=== PATIENT | female | born 1995 | race Caucasian/White ===

== ENCOUNTER → 2023-01-02 | Outpatient (CLI) | payer OTHER, SELFPAY | END | disposition home or self-care (01) | PROVIDERS: Referring Provider Registered Nurse; Visit Provider Registered Nurse | DX: Z34.90 Encounter for supervision of normal pregnancy, unspecified, unspecified trimester (principal); Z3A.00 Weeks of gestation of pregnancy not specified | CPT/HCPCS: 87086; 87088 ==

== ENCOUNTER → 2023-01-11 | Outpatient (CLI) | payer OTHER, SELFPAY ==
[2023-01-18 17:53] LABS: HPV Reflexed? NOT INDICATED
== END | disposition home or self-care (01) ==
LOC: LABSPEC 17:09
PROVIDERS: Referring Provider Registered Nurse; Visit Provider Registered Nurse
DX: Z12.4 Encounter for screening for malignant neoplasm of cervix (principal)
CPT/HCPCS: 88175; G0145

== ENCOUNTER → 2023-01-29 | Outpatient (CLI) | payer OTHER, SELFPAY ==
[2023-01-29 16:26] LABS: NATERA MAILED SPECIMEN
[2023-01-29 16:28] LABS: Absolute Lymphocyte Count 2.82 X10^3/uL (0.83-4.51); Absolute Neutrophil Count 6.1 X10^3/uL (2.0-7.7); Basophil# 0.04 X10^3/uL; Basophil% 0.4 % (0-1); Eosinophil# 0.13 X10^3/uL; Eosinophils% 1.3 % (0-5); Hematocrit 36.8 % (37-47); Hemoglobin 12.3 g/dL (12.0-15.0); Lymphocyte # 2.82 X10^3/ul (0.83-4.51); Lymphocyte % 28.5 % (19-41); Mean Corp Hgb Conc 33.4 g/dL (32-36); Mean Corpuscular Hgb 29.9 pg (27.0-32.0); Mean Corpuscular Volume 89.3 fL (81-99); Mean Platelet Vol. 10.3 fl (6.2-12.0); Monocyte# 0.83 X10^3/uL; Monocyte% 8.4 % (0-10); NRBC Flagged by Analyzer 0 % (0-5); Neutrophil # 6.07 X10^3/uL (2.7-7.7); Neutrophil % 61.2 % (47-70); Platelet Count 301 K/mm3 (150-450); RBC Distribution Width CV 12.4 % (11.6-14.6); RBC Distribution Width SD 40.5 fl (35.1-43.9); Red Blood Count 4.12 M/mm3 (4.2-5.4); White Blood Count 9.9 K/mm3 (4.4-11.0)
[2023-01-29 16:59] LABS: Anion Gap 4 (5-15); BUN 9 mg/dL (7-18); BUN/Creat Ratio 13.4 RATIO (10-20); Chloride 106 mmol/L (98-107); Creatinine, Serum 0.67 mg/dL (0.55-1.02); EST Glomerular Filtration Rate 113 mL/min (>60); Est Glom Filt Rate - Afr Amer 136 mL/min (>60); Glucose 86 mg/dL (74-106); Potassium 3.5 mmol/L (3.5-5.1); Sodium Level 137 mmol/L (136-145)
[2023-01-29 17:14] LABS: Hemoglobin A1c < 3.8 % (3.8-5.6)
[2023-01-29 17:42] LABS: HIV - WCH Non-Reactive (Nonreactive); Hepatitis B Surface Antigen Non-Reactive (Nonreactive); Hepatitis C Antibody Non-Reactive (Nonreactive); Rubella IgG Reactive (Nonreactive); Syphilis Antibodies Non-reactive
== END | disposition home or self-care (01) ==
PROVIDERS: Referring Provider Registered Nurse; Visit Provider Registered Nurse
DX: O99.210 Obesity complicating pregnancy, unspecified trimester (principal); N28.9 Disorder of kidney and ureter, unspecified; E66.9 Obesity, unspecified; O99.891 Other specified diseases and conditions complicating pregnancy; Z3A.00 Weeks of gestation of pregnancy not specified
CPT/HCPCS: 36415; 80048; 83036; 85025; 86703; 86762; 86780; 86803; 86850; 86900; 86901; 87340

== ENCOUNTER 2023-03-16 20:16 | Emergency (ER) | payer OTHER, SELFPAY ==
[2023-03-16 20:18] VITALS: BP 134/94; PULSE 94; RESP 18; TEMP 36.3; O2SAT 100; BMI 30.2
--- NOTE | 2023-03-16 20:40 | EDS_ITS ---
<Statement entered by Yari Cruz MD - 03/17/23 00:56> I have personally performed a face to face assessment of the patient and have reviewed the RAMIN Note. Patient presents secondary to vaginal bleeding. She is currently 17 weeks with her first . Apparently after going to the bathroom and wiping today she noted blood. I did receive a phone call from Dr. Joan More that the patient will be coming over. She had recommended getting a formal ultrasound only if ultrasound is already in-house. If not we could obtain heart tones and if normal patient can be discharged home on bedrest until she can have an ultrasound to the office. Patient denies significant cramping or further bleeding. Her blood type is a positive. Patient sitting upright in bed no acute distress. She is anxious but in no acute distress. Head and neck examination unremarkable. Heart is regular rate and rhythm. Lung sounds are clear. Abdomen is soft and nontender. I performed a bedside ultrasound which reveals good movement and cardiac motion. Nursing staff was able to obtain bedside heart tones at 134. Patient was advised to follow pelvic rest and follow-up with [facility] on Saturday. Return instructions given. HPI HPI - Female History of Present Illness Chief Complaint: Vag Bld, Preg Narrative Narrative: Patient presenting today due to vaginal bleeding that started this evening. She reports that she went to use the toilet and noticed a small amount of blood when she wiped. She immediately called her OB and came into the ED. She sees Dr. More. She is G1, P0 and 17 weeks along. She has had care. She denies any recent sexual intercourse, fevers, chills, pelvic pain, abdominal pain, urinary symptoms, nausea, or vomiting. [facility] Medical History Alopecia Kidney stone Recurrent UTI Home Medications multivit-min no.71-iron fum 28 mg-folate no.1 1 mg-dha 300 mg capsule (PNV- [place]) cap PO 12/28/22 [History Last Taken Unknown] ondansetron 4 mg disintegrating tablet 4 mg PO Q8H PRN nausea and vomiting #30 tabs 01/11/23 [Rx Last Taken Unknown] famotidine 20 mg tablet (Pepcid) 20 mg PO BID #60 tabs 03/06/23 [Rx Last Taken Unknown] Allergy/AdvReac Type Severity Reaction Status Date / Time No Known Allergies Allergy Verified 03/16/23 20:18 Surgical History H/O lithotripsy Social History adopted: No household members: spouse current occupational status: employed current occupation: TEACHER current occupational exposures/hazards: No pets and animals: No history of recent travel: Yes ([place]) out of state: Yes out of country: No sexually active: Yes Smoking Status: Never smoker alcohol intake: current alcohol intake frequency: holidays/special occasions only details: NOT WHILE substance use type: does not use well-balanced diet: daily or most days caffeine: No eating out: 1-3 times/week during the past year weight has: remained stable what type of physical activity do you participate in: other details: CROSSFIT frequency: 1-2 times per week duration: 45-60 minutes/day bonilla/alevism: Advent seatbelt use: always do you feel safe at home: Yes additional social history: [employer] ROS ROS ED Constitutional Constitutional ED: Denies chills or fever(s) Cardiovascular Cardiovascular: Denies chest pain Respiratory/Chest Respiratory/Chest: Denies cough or dyspnea Gastrointestinal Gastrointestinal: Denies abdominal pain, nausea or vomiting Genitourinary Genitourinary ED: Denies dysuria, hematuria or urinary frequency Musculoskeletal Musculoskeletal: Denies arthralgias or myalgias Integumentary Denies rash Neurologic Neurologic: Denies weakness EXAM Physical Exam Const Vital Signs: 03/16/23 20:18 Temperature 97.3 F L Temperature Source Temporal Pulse Rate 94 Respiratory Rate 18 Blood Pressure 134/94 H Blood Pressure Mean 107 Pulse Ox 100 Oxygen Delivery Method Room Air Positive well nourished, well developed and no apparent distress General Appearance ED: well developed HEENT Reports normocephalic and head/scalp atraumatic Mouth ED: Yes moist mucous membranes normal Eyes PERRL and EOMs intact bilaterally Neck full ROM and supple Chest Wall inspection of chest normal Resp normal respiratory effort and clear to auscultation bilaterally Cardio regular rate and regular rhythm GI soft to palpation, non-tender, non-distended and no masses Back/Spine normal ROM and normal to inspection Extremity normal to inspection and full ROM Neuro oriented x3, CN's II-XII intact bilaterally, moves all extremities, no focal motor deficits and no sensory deficits noted Sensorium / Orientation: awake and alert Psych mental status grossly normal and thought process normal Skin no rashes or lesions noted and no wounds MDM MDM MDM Narrative Medical decision making narrative: Patient presenting due to vaginal bleeding that started this evening. She had noticed small amount when she wiped. She has not had any abdominal or pelvic cramping. She is tearful and appears anxious. The attending did speak with Dr. More who reported that if ultrasound was here to order a transvaginal ultrasound, however, since we do not have them at this hour she suggests getting heart tones. If the heart tones were normal she encouraged pelvic rest until a formal ultrasound can be obtained. Her blood type is A +. heart tones are 134 bpm. The attending did perform a ultrasound and sees normal movement. We did speak with her OB, she is to follow-up with her on Saturday and will be discharged home in stable condition. She has been given return instructions and is comfortable with plan. Discharge Plan Triage Chief Complaint: Vag Bld, Preg ED Midlevel Provider: Alejandra Dejesus ED Provider: Yari Cruz Dx/Rx/DC Orders Clinical Impression: Abnormal vaginal bleeding, Instructions: Vaginal Bleeding During Prescriptions: No Action PNV-[place] 28-1-300 mg capsule PO ondansetron 4 mg tablet,disintegrating 4 mg PO Q8H PRN (Reason: nausea and vomiting) Qty: 30 3RF famotidine [Pepcid] 20 mg tablet 20 mg PO BID Qty: 60 10RF Primary Care Provider: Care Physician,No Primary Referrals: Care Physician,No Primary [Primary Care Provider] - Activity Restrictions/Additional Instructions: Follow up with OB and return for any worsening of your symptoms. Disposition Disposition: Home, Self Care
--- OUTSIDE RECORDS SUMMARY | 2023-03-16 20:41 | XMS RPT_ITS | CCD ---
Author Name Unknown Address [address] [facility] [address] [place] [address] Organization [facility] Care Team Providers Care Color Technician Name Role Phone Viral Lincoln Unavailable Unavailable None, No PCP Unavailable Unavailable None, No PCP Unavailable Unavailable Unavailable Unavailable Yogesh Smith Unavailable Luis, Mr. Yogesh Reeceel Primary Care Unavail able Newbill, Yogesh Reeceel Attending Unavail able Newbill, Mr. Yogesh Keith Referring Unavail able Salazar, Dr. Viral Nguyen Attending Unavai jennifer Lincoln, Dr. Viral Nguyen Referring Unavai lable Newbill, Mr. Yogesh Keith Primary Care Unavail able Newbill, Mr. Yogesh Keith Primary Care Unavail able VIRAL LINCOLN Attending UnavailVIRAL Escobar Referring Unavailabl e VIRAL LINCOLN Attending Unavailabl e VIRAL LINCOLN Referring Unavailabl e Newbill, Mr. Yogesh Keith Primary Care Unavail able VIRAL LINCOLN Attending Unavailabl e Newbill, Mr. Yogesh Keith Primary Care Unavail able Newbill, Trey Yogesh Sagar Attending Unavail able Newbill, Mr. Yogesh Keith Referring Unavail able Medications Completed/Discontinued Medications Medication Drug Class(es) Dates Sig (Normalized) Sig (Original) drospirenone / Ethinyl Estradiol (3 sources) Progestin, Estrogen Start: 12-15-2021 take 1 tablet by mouth once daily Drospirenone-Ethi nyl Estradiol 3-0.03 MG Oral Tablet TAKE 1 TABLET DAILY. 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, without mention of intractable migraine without mention of status migrainosus] Chronic Immunizations and screening for infectious disease (20 sources) Patient encounter status; Translations: [Screening examination for venereal disease] Episodic Inflammatory diseases of female pelvic organs (16 sources) Bacterial vaginosis; Translations: [Vaginitis and vulvovaginitis, unspecified] Episodic Other endocrine disorders (1 source) Menarche; Translations: [History of Menarche] Chronic Other female genital disorders (14 sources) Postcoital bleeding; Translations: [Postcoital bleeding] Chronic Other female genital disorders (2 sources) Postcoital and contact bleeding; Translations: [Postcoital and contact bleeding] Onset: 12-11-2021 Chronic Other screening for suspected conditions (not mental disorders or infectious disease) (18 sources) Cancer cervix screening status; Translations: [Screening for malignant neoplasms of cervix] Onset: 12-06-2021 Episodic Transient cerebral ischemia (12 sources) Amaurosis fugax of left eye; 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] Onset: 03-20-2021 Chronic Viral infection (6 sources) Herpes simplex of female genitalia; Translations: [Genital herpes, unspecified] Chronic Past or Other Problems Problem Classification Problem Date Documented Da te Episodic/Chronic Unclassified (1 source) Patient encounter status; Translations: [Contraceptive management] Unclassified (1 source) Cancer cervix screening status; Translations: [Screening for cervical cancer] Unclassified (16 sources) Finding of menstrual bleeding; Translations: [Menstruation] Results Test Name Value Interpretation Reference Range Facil ity Vital Signs Date Time Vital Sign Value Performing Clinician Felixi venessa 12-15-2021 15:49-0400 Body height 152.4 cm [place] Work Phone: [employer] Work Phone: 12-15-2021 15:49-0400 Body mass index (BMI) [Ratio] 30.44 kg/m2 [place] Work Phone: [employer] Work Phone: 12-15-2021 15:49-0400 Body surface area Derived from formula 1.68 m2 Yogesh Imelda Newbill Work Phone: [place] [address] [address] Work Phone: 12-15-2021 15:49-0400 Body weight 70.7 kg Yogesh M Newbill Work Phone: [place] [address] [address] Work Phone: 12-15-2021 15:49-0400 Diastolic blood pressure 66 mm[Hg] Yogesh M Newbill Work Phone: [place] [address] [address] Work Phone: 12-15-2021 15:49-0400 Systolic blood pressure 124 mm[Hg] Yogesh M Newbill Work Phone: [place] [address] [address] Work Phone: 12-06-2021 15:37-0400 Body height 152.4 cm Yogesh Imelda Newbill Work Phone: [place] [address] [address] Work Phone: 12-06-2021 15:37-0400 Body mass index (BMI) [Ratio] 30.31 kg/m2 Yogesh Imelda Newbill Work Phone: [place] [address] [address] Work Phone: 12-06-2021 15:37-0400 Body surface area Derived from formula 1.68 m2 Yogesh Imelda Newbill Work Phone: [place] [address] [address] Work Phone: 12-06-2021 15:37-0400 Body weight 70.4 kg Yogesh M Newbill Work Phone: [place] [address] [address] Work Phone: 12-06-2021 15:37-0400 Diastolic blood pressure 64 mm[Hg] Yogesh M Newbill Work Phone: [place] [address] [address] Work Phone: 12-06-2021 15:37-0400 Systolic blood pressure 122 mm[Hg] Yogesh Smith [facility] [address] Work Phone: 02-27-2021 15:18-0500 Body height 152.4 cm No PCP None [facility] Work Phone: 02-27-2021 15:18-0500 Body mass index (BMI) [Ratio] 29.1 kg/m2 No PCP None [facility] Work Phone: 02-27-2021 15:18-0500 Body surface area Derived from formula 1.65 m2 No PCP None [facility] Work Phone: 02-27-2021 15:18-0500 Body temperature 97.6 [degF] No PCP None [facility] Work Phone: 02-27-2021 15:18-0500 Body weight 67.59 kg No PCP None [facility] Work Phone: 02-27-2021 15:18-0500 Diastolic blood pressure 80 mm[Hg] No PCP None [facility] Work Phone: 02-27-2021 15:18-0500 Heart rate 60 /min No PCP None [facility] Work Phone: 02-27-2021 15:18-0500 SaO2% (BldA) [Mass fraction] 99 % No PCP None [facility] Work Phone: 02-27-2021 15:18-0500 Systolic blood pressure 112 mm[Hg] No PCP None [facility] Work Phone: 11-18-2020 13:58-0400 Body height 152.4 cm No PCP None [facility] [address] Work Phone: 11-18-2020 13:58-0400 Body mass index (BMI) [Ratio] 27.94 kg/m2 No PCP None [facility] [address] Work Phone: 11-18-2020 13:58-0400 Body surface area Derived from formula 1.62 m2 No PCP None [facility] [address] Work Phone: 11-18-2020 13:58-0400 Body temperature 98.7 [degF] No PCP None [facility] [address] Work Phone: 11-18-2020 13:58-0400 Body weight 64.9 kg No PCP None [facility] [address] Work Phone: 11-18-2020 13:58-0400 Diastolic blood pressure 72 mm[Hg] No PCP None [facility] [address] Work Phone: 11-18-2020 13:58-0400 Systolic blood pressure 100 mm[Hg] No PCP None [facility] [address] Work Phone: 09-05-2020 15:49-0400 Body height 152.4 cm No PCP None [facility] [address] Work Phone: 09-05-2020 15:49-0400 Body mass index (BMI) [Ratio] 27.43 kg/m2 No PCP None [facility] [address] Work Phone: 09-05-2020 15:49-0400 Body surface area Derived from formula 1.61 m2 No PCP [facility] [address] Work Phone: 09-05-2020 15:49-0400 Body temperature 96.8 [degF] No PCP None [facility] Work Phone: 09-05-2020 15:49-0400 Body weight 63.7 kg No PCP [facility] [address] Work Phone: 09-05-2020 15:49-0400 Diastolic blood pressure 62 mm[Hg] No PCP None [facility] [address] Work Phone: 09-05-2020 15:49-0400 Systolic blood pressure 112 mm[Hg] No PCP [facility] [address] Work Phone: 08-03-2020 09:54-0400 Body height 152.4 cm No PCP [facility] [address] Work Phone: 08-03-2020 09:54-0400 Body mass index (BMI) [Ratio] 27.25 kg/m2 No PCP None [facility] [address] Work Phone: 08-03-2020 09:54-0400 Body surface area Derived from formula 1.6 m2 No PCP [facility] [address] Work Phone: 08-03-2020 09:54-0400 Body temperature 98 [degF] No PCP None [facility] [address] Work Phone: 08-03-2020 09:54-0400 Body weight 63.3 kg No PCP None [facility] [address] Work Phone: 08-03-2020 09:54-0400 Diastolic blood pressure 64 mm[Hg] No PCP [facility] [address] Work Phone: 08-03-2020 09:54-0400 Systolic blood pressure 114 mm[Hg] No PCP [facility] [address] Work Phone: 09-29-2019 13:29-0400 BMI (Body Mass Index) 27.94 kg/m2 Viral Lincoln [facility] [address] Work Phone: 09-29-2019 13:29-0400 Body Temperature 97.3 [degF] [facility] [address] Work Phone: Encounters Encounter Date Encounter Type Care Provider Facility Start: 10-06-2022 SHRUTI Smith Work Phone: [facility] [address] [address] Work Phone: Start: 05-30-2022 AUDIT Yogesh Mullerayadtomas Work Phone: [facility] [address] [address] Work Phone: Start: 12-15-2021 ambulatory VIRAL Abreu cility:[id number] Start: 12-15-2021 Office outpatient vi sit 15 minutes Yogesh Segura Newayadl Work Phone: [facility] [address] [address] Work Phone: Start: 12-15-2021 Chart Update Yogesh Smith Work Phone: [facility] [address] [address] Work Phone: Start: 12-12-2021 Chart Update Yogesh Smith [facility]: [facility] [address] [address] Work Phone: Start: 12-11-[address] Viral Lincoln Facility:[id number] Start: 12-07-2021 Encounter for gynecological examination (general) (routine) without abnormal findings VIRAL LINCOLN [facility] Start: 12-06-2021 Encounter for gynecological examination (general) (routine) without abnormal findings VIRAL LINCOLN Facility:[facility] Start: 12-06-2021 ambulatory VIRAL LINCOLN Fa cility:[facility] Start: 04-04-2021 AUDIT Yogesh Smith [facility]: [facility] Work Phone: Start: 03-22-2021 Chart Update Yogesh Smith Work Phone: [facility] Work Phone: Start: 03-20-2021 ambulatory Mr. Yogesh marin Luis Facility:[id number] Start: 03-16-2021 AUDIT Yogesh Smith Work Phone: [facility] Work Phone: Start: 03-11-2021 Chart Update Yogesh Smith Work Phone: [facility] Work Phone: Start: 02-27-2021 Office outpatient ne w 30 minutes No PCP None [facility] Work Phone: Start: 02-27-2021 ambulatory Mr. Yogesh Smith Facility:[id number] Start: 11-18-2020 Periodic preventive med est patient 18-39 yrs No PCP [facility] [employer] Work Phone: Start: 11-01-2020 AUDIT No PCP None [facility] [employer] Work Phone: Start: 09-09-2020 AUDIT No PCP None [facility] [employer] Work Phone: Start: 09-05-2020 Office outpatient vi sit 15 minutes No PCP None [facility] [employer] Work Phone: Start: 08-03-2020 Office outpatient vi sit 15 minutes No PCP None [facility] [employer] Work Phone: Cancer cervix - scre ening done No PCP None [facility] [employer] Work Phone: Procedures Date Procedure Procedure Detail Performing Clinician Start: 09-29-2019 Microscopic observat ion [Identifier] in Cervix by Cyto stain.thin prep Viral Lincoln Extraction of wisdom tooth S ann marie Smith Work Phone: Plan of Treatment Date Care Activity Detail Author Start: 12-15-2021 FUV, Provider: Viral Lincoln, Status: Pen, Time: 3:45 PM FUV, Provider: Viral Lincoln, Status: Pen, Time: 3:45 PM [employer] Work Phone: Start: 11-22-2021 Patient encounter procedure ANNUAL, Provider: Viral Lincoln, Status: Pen, Time: 3:30 PM [employer] Work Phone: Start: 11-18-2020 Patient encounter procedure ANNUAL, Provider: Viral Lincoln, Status: Pen, Time: 1:[address] Work Phone: Immunizations Immunization Date Immunization Notes Care Provider Lois salinas 02-23-2021 Moderna COVID-19 Vac cine 100 MCG/0.5ML Intramuscular Suspension No PCP None [facility] Work Phone: 05-20-2020 Moderna COVID-19 Vac cine 100 MCG/0.5ML Intramuscular Suspension No PCP None [facility] Work Phone: 04-23-2020 Moderna COVID-19 Vac cine 100 MCG/0.5ML Intramuscular Suspension No PCP None [facility] Work Phone: 08-26-2009 human papilloma viru s vaccine, quadrivalent No PCP None [facility] Work Phone: 08-26-2009 meningococcal polysaccharide (groups A, C, Y and W-135) diphtheria toxoid conjugate vaccine (MCV4P) No PCP None [facility] Work Phone: 08-26-2009 tetanus toxoid, redu herman diphtheria toxoid, and acellular pertussis vaccine, adsorbed No PCP None [facility] Work Phone: 08-26-2009 varicella virus vaccine No PCP None [facility] Work Phone: 09-16-2002 diphtheria, tetanus toxoids and acellular pertussis vaccine, unspecified formulation No PCP None [facility] Work Phone: 09-16-2002 measles, mumps and r ubella virus vaccine No PCP None [facility] Work Phone: 09-16-2002 poliovirus vaccine, inactivated No PCP None [facility] Work Phone: 06-14-1999 haemophilus influenz ae type b conjugate and Hepatitis B vaccine No PCP None [facility] Work Phone: 06-14-1999 varicella virus vaccine No PCP None [facility] Work Phone: 11-16-1998 diphtheria, tetanus toxoids and acellular pertussis vaccine, unspecified formulation No PCP None [facility] Work Phone: 11-16-1998 measles, mumps and r ubella virus vaccine No PCP None [facility] Work Phone: 1997 diphtheria, tetanus toxoids and acellular pertussis vaccine, unspecified formulation No PCP None [facility] Work Phone: 1997 haemophilus influenz ae type b vaccine, conjugate unspecified formulation No PCP None [facility] Work Phone: 1997 trivalent poliovirus vaccine, live, oral No PCP None [facility] Work Phone: 1997 diphtheria, tetanus toxoids and acellular pertussis vaccine, unspecified formulation No PCP None [facility] Work Phone: 1997 haemophilus influenz ae type b conjugate and Hepatitis B vaccine No PCP None [facility] Work Phone: 1997 trivalent poliovirus vaccine, live, oral No PCP None [facility] Work Phone: 1997 diphtheria, tetanus toxoids and acellular pertussis vaccine, unspecified formulation No PCP None [facility] Work Phone: 1997 haemophilus influenz ae type b conjugate and Hepatitis B vaccine No PCP None [facility] Work Phone: 1997 trivalent poliovirus vaccine, live, oral No PCP None [facility] Work Phone: Payers Date Payer Category Payer Unknown [id number] 1997 Unknown [id number] 1997 Unknown [id number] 2.16. [id number] 1997 Unknown [id number] [id number]. [id number] 1997 Unknown [id number] 2.16. [id number] 1997 Unknown [id number] [id number]. [id number] Self-pay [id number] Unknown ANTHEM Unknown [id number] Social History Date Type Detail Facility No illicit drug use No illicit drug use [place] [address] [employer] Work Phone: Functional Status Date Assessment Result Facility NEGATED: Highlighted row Functional performance Functional status health issues are not documented Disease [place] [address] [employer] Work Phone: Mental Status Date Assessment Result Facility NEGATED: Highlighted row Cognitive function [Interpretation] Cognitive status health issues are not documented Disease [place] [address] [employer] Phone: Clinical Note 12-06-2021 Note Date & Type Note Facility 12-06-2021 Note 85 Date of Procedure: 12/06/2021 Pathologist: [facility], Cytology Date Reported: 12/15/2021 Date Received: 12/07/2021 Submitting Physician: VIRAL LINCOLN MD FINAL CYTOLOGICAL INTERPRETATION A. THINPREP PAP CERVICAL: Specimen Adequacy: SATISFACTORY FOR EVALUATION. Quality Indicator: Absence of endocervical/transformation zone component. Quality Indicator: Partially obscuring inflammation. General Categorization: NEGATIVE FOR INTRAEPITHELIAL LESION OR MALIGNANCY. Ancillary Testing: Specimen does not meet the requisition-stated criteria for HPV testing. See Pap test interpretation above. QC review performed at [facility], [address] [place], [place] [id number] This specimen has been analyzed by the [employer] Imaging System ([employer] an automated imaging and review system, which assists the laboratory in evaluating cells on ThinPrep Pap tests. Following automated imaging, selected coto from every slide were reviewed by a marketing rep and/or pathologist. Electronically Signed Out By [facility], Cytology//IK/LSM By the signature on this report, the individual or group listed as making the Final Interpretation/Diagnosis certifies that they have reviewed this case. Diagnostic interpretation performed at [facility] [address] [place] [address] Educational Note: Cervical cytology is a screening procedure primarily for squamous cancers and precursors and has associated false-negative and false-positive results as evidenced by published data. Your patient?s test should be interpreted in this context, together with patient?s history and clinical findings. Regular sampling and follow-up of unexplained clinical signs and symptoms are recommended to minimize false negative results. Clinical History Date of Last Menstrual Period: 10/02/2021 Other Clinical Conditions: HPV Reflex for ASC-US only - Include HPV Genotype Clinical Diagnosis History: Pap test, as part of routine gynecological examination - (Z01.419); Screening for cervical cancer - (Z12.4), z11.51 Source of Specimen A: THINPREP PAP CERVICAL [facility] Department of Pathology [address] [place] [address] Progress note 03-27-2021 Note Date & Type Note Facility 03-27-2021 Note HNO ID: [id number] Author: Donte Garcia MD Service: ? Author Type: Physician Type: Progress Notes Filed: 03/27/2021 2:16 PM Note Text: ASSESSMENT/PLAN: 1. Visual disturbance - ICD9: 368.9, ICD10: H53.9 No evidence of any type of ocular migraine Recommended patient to discontinue contact lenses for a period of couple weeks and then try again Patient is good candidate for Laser in situ keratomileusis surgery Return to clinic PRN Patient to call our office MARK if problem persists or with any changes Donte Garcia MD I have confirmed and edited as necessary the relevant ophthalmic history, review of systems, surgical history, and ophthalmological examination findings as obtained by the ophthalmic technical staff. I have seen and examined Slime Tomas Orlandoson. I have discussed the examination findings, diagnosis, and treatment options with Slime Tomas Orlandoson and/or her family. I have also reviewed and agree with the assessment and plan as stated above and agree with all its relevant components. I gave the patient the opportunity to ask questions about the findings, diagnosis, and treatment options. [facility] History of Present illness Narrative 11-25-2020 Note Date & Type Note Facility 11-25-2020 History of Present illness Narrative Patient presents to [facility] care.Patient has no chronic illnesses and takes no daily medications.Patient presents today to discuss diagnosis of ocular migraines. Patient reports intermittent changes in vision that can affect the left or both eyes since November 2020. Patient states initially, these episodes were less than an hour in duration but as time progressed, the episodes lasted up to 4 to 6 hours. Patient was seen by ophthalmology recently and diagnosed with ocular migraines. Ophthalmology recommended follow-up with primary care. Patient states the events can occur without known precipitating event. Patient has attempted diet modification without improvement. No headache, nausea, photophobia, or other typical migraine symptoms associated with these event. Patient denies any shoulder or hip pain.Of note, patient has underdeveloped right kidney. [facility] Work Phone: History of Present illness Narrative 08-25-2020 Note Date & Type Note Facility 08-25-2020 History of Present illness Narrative Presents for annual exam. She voices no complaints and is doing well. Denies any bowel or bladder problems. Denies any breast problems. She had episode of postcoital bleeding in August and then nothing for about a month and then recently had recurrence of bleeding after intercourse. Denies any vaginal discharge or pelvic pain. She is currently on control pills. [employer] Work Phone: History of Present illness Narrative 08-06-2020 Note Date & Type Note Facility 08-06-2020 History of Present illness Narrative Patient presents stating that she still has m associated with intercourse. Denies any vaginal discharge. She was treated last month for bacterial vaginosis. She is scheduled to be in 12 days. She is currently on control pills. [employer] Work Phone: History of Present illness Narrative 02-04-2020 Note Date & Type Note Facility 02-04-2020 History of Present illness Narrative Patient presents stating that she has had vaginal bleeding with intercourse for the last 6 months. Denies any pelvic pain or pain associated with intercourse. She has noticed a hole vaginal discharge for at least several months. Denies any bowel or bladder problems. [employer] Work Phone: History of Present illness Narrative 02-03-2020 Note Date & Type Note Facility 02-03-2020 History of Present illness Narrative Patient presents stating that she has had vaginal bleeding with intercourse for the last 6 months. Denies any pelvic pain or pain associated with intercourse. She has noticed a hole vaginal discharge for at least several months. Denies any bowel or bladder problems. [employer] Work Phone: History of Present illness Narrative Note Date & Type Note Facility History of Present illness Narrative Patient presents to review recent pelvic ultrasound due to postcoital m. she is currently on control pills. Patient states that she was found to have a very small right kidney. She believes that she may have noticed spotting with intercourse after being switched to her current control pills. [employer] Work Phone: Summary Purpose Family History Mother Name Dates Details No pertinent family history( V49.89, Z78.9) Status:Active Father Name Dates Details No pertinent family history( V49.89, Z78.9) Status:Active Unknown Family Member Name Dates Details No pertinent family history: Mother, Father(V49.89, Z78.9) Status:Active Unknown Family Member Name Dates Details No pertinent family history: Mother, Father(V49.89, Z78.9) Status:Active Unknown Family Member Name Dates Details No pertinent family history: Mother, Father(V49.89, Z78.9) Status:Active Unknown Family Member Name Dates Details No pertinent family history: Mother, Father(V49.89, Z78.9) Status:Active Unknown Family Member Name Dates Details No pertinent family history: Mother, Father(V49.89, Z78.9) Status:Active Unknown Family Member Name Dates Details No pertinent family history: Mother(V49.89, Z78.9) Status:Active Family history of hypertensi on: Father(V17.49, Z82.49) Status:Active Unknown Family Member Name Dates Details No pertinent family history: Mother(V49.89, Z78.9) Status:Active Family history of hypertensi on: Father(V17.49, Z82.49) Status:Active Unknown Family Member Name Dates Details No pertinent family history: Mother(V49.89, Z78.9) Status:Active Family history of hypertensi on: Father(V17.49, Z82.49) Status:Active Unknown Family Member Name Dates Details No pertinent family history: Mother(V49.89, Z78.9) Status:Active Family history of hypertensi on: Father(V17.49, Z82.49) Status:Active Unknown Family Member Name Dates Details No pertinent family history: Mother(V49.89, Z78.9) Status:Active Family history of hypertensi on: Father(V17.49, Z82.49) Status:Active Unknown Family Member Name Dates Details No pertinent family history: Mother(V49.89, Z78.9) Status:Active Family history of hypertensi on: Father(V17.49, Z82.49) Status:Active Unknown Family Member Name Dates Details No pertinent family history: Mother(V49.89, Z78.9) Status:Active Family history of hypertensi on: Father(V17.49, Z82.49) Status:Active Unknown Family Member Name Dates Details No pertinent family history: Mother(V49.89, Z78.9) Status:Active Family history of hypertensi on: Father(V17.49, Z82.49) Status:Active Unknown Family Member Name Dates Details No pertinent family history: Mother(V49.89, Z78.9) Status:Active Family history of hypertensi on: Father(V17.49, Z82.49) Status:Active Unknown Family Member Name Dates Details No pertinent family history: Mother(V49.89, Z78.9) Status:Active Family history of hypertensi on: Father(V17.49, Z82.49) Status:Active Advance Directives No Advanced Directives Records FoundNo Advanced Directives Records FoundNo Advanced Directives Records FoundNo Advanced Directives Records FoundNo Advanced Directives Records Found Chief Complaint Patient is here due to vaginal bleeding with intercourse. Patient states it started about 6 months ago. Patient denies any pain with intercourse or lower pelvic pain. LMP:07/26/20.Patient is here due to vaginal bleeding with intercourse. Patient states it started about 6 months ago. Patient denies any pain with intercourse or lower pelvic pain. LMP:07/26/20.Patient is here due to spotting bleeding after intercourse. Patient denies any pain with intercourse. LMP:07/26/20PT IS HERE TODAY FOR HER ANNUAL EXAM. HAS NO CONCERNS. DOES A SELF BREAST CHECK. LMP: 10/26/2020\`NEW PT HERE TO EST CARE. C/O MIGRAINESPatient is here to review ultrasound results. Additional Source Comments INFORMATION SOURCE (unrecogn ized section and content) DATE CREATED AUTHOR AUTHOR'S ORGANIZ ATION 05/19/2021 [facility] DATE CREATED AUTHOR AUTHOR'S ORGANIZ ATION 12/16/2021 [facility] DATE CREATED AUTHOR AUTHOR'S ORGANIZ ATION 12/17/2021 [facility] DATE CREATED AUTHOR AUTHOR'S ORGANIZ ATION 12/19/2021 [facility] FOR RECORDS PERTAINING TO PATIENTS WHO ARE OR HAVE BEEN ENROLLED IN A CHEMICAL DEPENDENCY/SUBSTANCEABUSE PROGRAM, SOME INFORMATION MAY BE OMITTED. This clinical summary was aggregated from multiple sources. Caution should be exercised in using it in the provision of clinical care. This summary normalizes information from multiple sources, and as a consequence, information in this document may materially change the coding, format and clinical context of patient data. In addition, data may be omitted in some cases. CLINICAL DECISIONS SHOULD BE BASED ON THE PRIMARY CLINICAL RECORDS. [facility]. provides no warranty or guarantee of the accuracy or completeness of information in this document.
== END 2023-03-16 21:08 | disposition home or self-care (01) ==
PROVIDERS: Emergency Provider Emergency Medicine; Visit Provider Emergency Medicine
DX: O20.9 Hemorrhage in early pregnancy, unspecified (principal); Z3A.17 17 weeks gestation of pregnancy
CPT/HCPCS: 99282

== ENCOUNTER → 2023-05-27 | Outpatient (CLI) | payer OTHER, SELFPAY ==
[2023-05-27 10:12] LABS: Absolute Lymphocyte Count 2.54 X10^3/uL (0.83-4.51); Absolute Neutrophil Count 9.7 X10^3/uL (2.0-7.7); Basophil# 0.08 X10^3/uL; Basophil% 0.6 % (0-1); Eosinophil# 0.14 X10^3/uL; Hematocrit 34.1 % (37-47); Hemoglobin 11.2 g/dL (12.0-15.0); Lymphocyte # 2.54 X10^3/ul (0.83-4.51); Lymphocyte % 18.9 % (19-41); Mean Corp Hgb Conc 32.8 g/dL (32-36); Mean Corpuscular Hgb 30.1 pg (27.0-32.0); Mean Corpuscular Volume 91.7 fL (81-99); Mean Platelet Vol. 10.5 fl (6.2-12.0); Monocyte% 6.7 % (0-10); NRBC Flagged by Analyzer 0 % (0-5); Neutrophil # 9.68 X10^3/uL (2.7-7.7); Neutrophil % 71.8 % (47-70); Platelet Count 227 K/mm3 (150-450); RBC Distribution Width CV 13.1 % (11.6-14.6); RBC Distribution Width SD 43.2 fl (35.1-43.9); Red Blood Count 3.72 M/mm3 (4.2-5.4); White Blood Count 13.5 K/mm3 (4.4-11.0)
[2023-05-27 10:48] LABS: ALB/GLOB Ratio 0.7 RATIO (0.9-2.4); AST(SGOT) 19 U/L (15-37); Alanine Aminotransfer ALT/SGPT 19 U/L (13-56); Albumin, Serum 2.6 g/dL (3.2-5.0); Alkaline Phosphatase 79 U/L (45-117); Anion Gap 6 (5-15); BUN 7 mg/dL (7-18); BUN/Creat Ratio 9.7 RATIO (10-20); Calcium,Total 8.7 mg/dL (8.5-10.1); Chloride 107 mmol/L (98-107); Creatinine, Serum 0.72 mg/dL (0.55-1.02); EST Glomerular Filtration Rate 104 mL/min (>60); Est Glom Filt Rate - Afr Amer 126 mL/min (>60); Globulin 3.7 g/dL (2.2-4.2); Glucose 139 mg/dL (74-106); Glucose Challenge Gest 1H 50g 139 mg/dL (70-140); Potassium 3.7 mmol/L (3.5-5.1); Protein, Total 6.3 g/dL (6.4-8.2); Sodium Level 137 mmol/L (136-145)
[2023-05-27 10:58] LABS: HIV - WCH Non-Reactive (Nonreactive); Syphilis Antibodies Non-reactive
== END | disposition home or self-care (01) ==
PROVIDERS: Referring Provider Obstetrics & Gynecology; Visit Provider Obstetrics & Gynecology
DX: O09.90 Supervision of high risk pregnancy, unspecified, unspecified trimester (principal); O99.891 Other specified diseases and conditions complicating pregnancy; Z3A.00 Weeks of gestation of pregnancy not specified; Z13.1 Encounter for screening for diabetes mellitus; N28.9 Disorder of kidney and ureter, unspecified
CPT/HCPCS: 36415; 80053; 82950; 85025; 86703; 86780

== ENCOUNTER 2023-05-29 22:30 | Inpatient (IN) | payer OTHER, SELFPAY ==
[2023-05-29 22:35] VITALS: RESP 18
[2023-05-29] MEDS: Lactated Ringers 1,000 ML 50 ML IV (22:35)
[2023-05-29] MEDS: Oxytocin 15 Units/NS 250ml 15 UNITS/250 ML IV.SOLN 83 UNITS IV (22:50)
[2023-05-29] MEDS: Cefazolin 2 GM in 0.9% Normal Saline (100mL Bag) 100 ML IV (23:06)
[2023-05-29 23:12] LABS: Absolute Lymphocyte Count 3.29 X10^3/uL (0.83-4.51); Absolute Neutrophil Count 16.7 X10^3/uL (2.0-7.7); Basophil# 0.12 X10^3/uL; Basophil% 0.5 % (0-1); Eosinophil# 0.13 X10^3/uL; Eosinophils% 0.6 % (0-5); Hematocrit 33.9 % (37-47); Hemoglobin 11.4 g/dL (12.0-15.0); Lymphocyte # 3.29 X10^3/ul (0.83-4.51); Lymphocyte % 14.7 % (19-41); Mean Corp Hgb Conc 33.6 g/dL (32-36); Mean Corpuscular Hgb 30.6 pg (27.0-32.0); Mean Corpuscular Volume 91.1 fL (81-99); Mean Platelet Vol. 10.6 fl (6.2-12.0); Monocyte# 1.91 X10^3/uL; Monocyte% 8.5 % (0-10); NRBC Flagged by Analyzer 0 % (0-5); Neutrophil # 16.65 X10^3/uL (2.7-7.7); Neutrophil % 74.6 % (47-70); POSITIVE DIFFERENTIAL YES; Platelet Count 238 K/mm3 (150-450); RBC Distribution Width CV 13.1 % (11.6-14.6); RBC Distribution Width SD 43.3 fl (35.1-43.9); Red Blood Count 3.72 M/mm3 (4.2-5.4); White Blood Count 22.3 K/mm3 (4.4-11.0)
[2023-05-29 23:16] LABS: Differential Indicated SCAN CRITERIA MET
[2023-05-29 23:24] LABS: International Normalized Ratio 1.1; Partial Thromboplast Time 28.8 Seconds (24.1-36.2); Prothrombin Time (Protime)PT. 13.9 SECONDS (11.7-14.9)
--- NOTE | 2023-05-29 23:24 | HP.PCM.OB_ITS ---
HPI - General General Date of Admission: 05/29/23 HPI Narrative SLIME MUSE, is a 28 F who presents Maternal Data Information SOL Calculator Estimated Delivery Date Method Current WG Current Estimate 08/19/23 Ultrasound #1 28w 2d Other Estimates 08/12/23 LMP (Certain) 29w 2d PFSH PFSH Medical History Alopecia Kidney stone Recurrent UTI Home Medications multivit-min no.71-iron fum 28 mg-folate no.1 1 mg-dha 300 mg capsule (PNV- [place]) cap PO 12/28/22 [History Last Taken Unknown] ondansetron 4 mg disintegrating tablet 4 mg PO Q8H PRN nausea and vomiting #30 tabs 01/11/23 [Rx Last Taken Unknown] famotidine 20 mg tablet (Pepcid) 20 mg PO BID #60 tabs 03/06/23 [Rx Last Taken Unknown] Allergy/AdvReac Type Severity Reaction Status Date / Time No Known Allergies Allergy Verified 05/27/23 10:08 Surgical History H/O lithotripsy Social History adopted: No household members: spouse current occupational status: employed current occupation: TEACHER current occupational exposures/hazards: No pets and animals: No history of recent travel: Yes ([place]) out of state: Yes out of country: No sexually active: Yes Smoking Status: Never smoker alcohol intake: current alcohol intake frequency: holidays/special occasions only details: NOT WHILE substance use type: does not use well-balanced diet: daily or most days caffeine: No eating out: 1-3 times/week during the past year weight has: remained stable what type of physical activity do you participate in: other details: CROSSFIT frequency: 1-2 times per week duration: 45-60 minutes/day bonilla/methodist: Episcopalian seatbelt use: always do you feel safe at home: Yes additional social history: JOSEPH- [employer] History 1 Elective abortions Hx Para 0 Spontaneous abortions Hx # Term Pregnancies Ectopic pregnancies Hx # Pregnancies Multiple births # of living children Visit Details Expected Delivery Route/Plan Labor Preferences- CB/BF classes: encouraged, obtained. labor support person: [] labor intervention preferences: [] pain management options preferred: [] cut cord/dad catch: [] : [] PP control planned: [] discussed possible routes of delivery and associated risks: [] special requests: [] Plans Covid status:declined Flu vaccine: declined Tdap vaccine: [] Rhogam: [] LARC form signed: [] Problem list reviewed and updated with the most current plan of care details and appropriate orders placed. Relevant counseling for the gestational age provided. Continue routine care and follow up unless otherwise noted in visit notes/problem list details OB Flowsheet Initial Weight: 157 lb Date -?-?-?-?-?-?-?-?-?-?-?-?- EGA Weight BP Urine Prot -?-?-?-?-?-?-?-?-?-?-?-?- Glucose FHR FuHt Pres Dilation -?-?-?-?-?-?-?-?-?-?-?-?- Effaced St Visit Note 01/02/23 -?-?-?-?-?-?-?-?-?-?-?-?- 7w 2d 157 lb (+0 oz) 125/80 -?-?-?-?-?-?-?-?-?-?-?-?- 144 -?-?-?-?-?-?-?-?-?-?-?-?- LC- CRL not cw L MP. SOL changed. potential vanishing twin vs abn YS. reviewed with WILLY. to repeat scan in 1 week. discussed genetics, considering 01/11/23 -?-?-?-?-?-?-?-?-?-?-?-?- 8w 4d 153 lb 2 oz (-3 lb 14 oz) 126/85 Negative -?-?-?-?-?-?-?-?-?-?-?-?- Negative 171 -?-?-?-?-?-?-?-?-?-?-?-?- LC- no vb/crampi ng. repeat us with gonzalez with now normal YS. zofran rx sent for nausea, will trial vit b6 and unisom first. 02/06/23 -?-?-?-?-?-?-?-?-?-?-?-?- 12w 2d 149 lb 2 oz (-7 lb 14 oz) 118/77 Negative -?-?-?-?-?-?-?-?-?-?-?-?- Negative 162 -?-?-?-?-?-?-?-?-?-?-?-?- MH-No VB, crampi ng. Nausea persists but lessening. Controls with zofran. 03/06/23 -?-?-?-?-?-?-?-?-?-?-?-?- 16w 2d 153 lb 4 oz (-3 lb 12 oz) 112/78 Negative -?-?--?-?-?-?-?-?-?-?-?-?- Negative 150 -?-?-?-?-?-?-?-?-?-?-?-?- JV-no lof, vagin al bleeding or cramping. pepcid for indigestion 04/05/23 -?-?-?-?-?-?-?-?-?-?-?--?- 20w 4d 157 lb 8 oz (+8 oz) 120/80 Negative -?-?-?-?-?-?-?-?-?-?-?-?- Negative 145 21 -?-?-?-?-?-?-?-?-?-?-?-?- Sm- no vb lof go od fm no regular ctx 04/30/23 -?-?-?-?-?-?-?-?-?-?-?-?- 24w 1d 163 lb 2 oz (+6 lb 2 oz) 104/73 Negative -?-?-?-?-?-?-?--?-?-?-?-?- Negative 140 24 -?-?-?-?-?-?-?-?-?-?-?-?- JV- no lof, vagi nal bleeding, or dec fm. glucola ordered. 05/27/23 -?-?-?-?-?-?-?-?-?-?-?-?- 28w 0d 163 lb 6 oz (+6 lb 6 oz) 115/78 Negative -?-?-?-?-?-?-?-?-?-?-?-?- Negative 155 28 -?-?-?-?-?-?-?-?-?-?-?-?- LC- no vb/ctx/lo f. LC- no vb/ctx/lof. needs 3 h our glucose. CMP and H&H stable. ROS Constitutional Constitutional: Denies change in weight, fatigue, fever(s), headache(s), poor appetite or weakness Eyes Eyes: Denies blurry vision, change in vision, seeing flashes or spots in vision ENT HEENT: Denies dizziness, headache(s), loss taste/smell or sore throat Cardiovascular Cardiovascular: Denies chest pain, dizziness, dyspnea, irregular heart rhythm, leg edema, palpitations, rapid heart rate or vomiting Respiratory/Chest Respiratory/Chest: Denies chest tightness, cough, dyspnea or breast pain Gastrointestinal Gastrointestinal: Denies abdominal pain, anorexia, constipation, cramping, diarrhea, hemorrhoids, vomiting or weight changes Genitourinary Genitourinary: Denies dysuria, flank pain, genital lesions, genital pain, urinary frequency or urinary urgency Musculoskeletal Musculoskeletal: Denies back pain, difficulty walking, joint pain, limited range of motion, muscle cramps or numbness Integumentary Integumentary: Denies lesions or unusual bruising Neurologic Neurologic: Denies abnormal movements, abnormal speech, dizziness, numbness, seizure-like activity or syncope Psychiatric Psychiatric: Denies anxiety, behavioral changes, change in appetite, change in libido, cognitive impairment, confusion, depression, difficulty concentrating, hallucinations or suicidal thoughts Endocrine Endocrinology: Denies excessive sweating, polydipsia or polyuria Hematologic/Lymphatic Hematologic/Lymphatic: Denies easy bleeding, easy bruising or lymphadenopathy Allergic/Immunologic Allergic/Immunologic: Denies itchy eyes, lip swelling, seasonal rhinorrhea, rhi nitis, throat swelling, tongue swelling, eczemia, wheezing or asthma Physical Exam Const alert, oriented x3 and healthy appearing General Appearance: cooperative HEENT normocephalic Face and Sinus: normal facial exam Eyes EOMs intact bilaterally and no scleral icterus General Eye: normal appearance of both eyes Neck full ROM and supple Lymph Lymphatic: no lymphadenopathy noted Chest Chest: abnormal inspection of the chest Resp normal respiratory effort Effort and Inspection: able to speak in complete sentences Cardio regular rate GI Inspection: gravid external exam normal Narrative: abdomen is tender and firm. on pelvic exam a large gush of fluid and blood was presented. Limbs felt only. Back/Spine no CVA tenderness Extremity normal to inspection, full ROM and no clubbing, cyanosis or edema General Extremity: Negative for calf tenderness or edema Skin Lesions: no lesions Rashes: no rashes Psych mental status grossly normal Labs Labs Labs: Blood Type A POSITIVE Antibody Screen NEGATIVE Hct 33.9 % (37-47) L Hgb 11.4 g/dL (12.0-15.0) L Syphilis Total Ab Non-reactive Rubella IgG Antibody Reactive (Nonreactive) Hep Bs Antigen Non-Reactive (Nonreactive) Hepatitis C Antibody Non-Reactive (Nonreactive) HIV 1&2 Antibody Non-Reactive (Nonreactive) Glucose 1 Hr 50 gm 139 mg/dL (70-140) Assessment & Plan (1) Placental abruption affecting delivery: (2) 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 (5) Obesity (BMI 30.0-34.9): COMMENT: hbga1c with nob labs (6) Genital herpes: QUALIFIERS: Herpes simplex infection site: vulvovaginitis Qualified Code(s): A60.04 - Herpesviral vulvovaginitis COMMENT: acyclovir at 36 weeks. (7) Supervision of high-risk : QUALIFIERS: Trimester: second trimester Qualified Code(s): O09.92 - Supervision of high risk , unspecified, second trimester COMMENT: [id number], SOL 08/12/23 boy Shahbaz (named after the college they met at ) Joseph (8) : QUALIFIERS: Weeks of gestation: 28 weeks Qualified Code(s): Z3A.28 - 28 weeks gestation of COMMENT: nl anatomy -LUQ echogenic focus seen but states not clinically significant. no further testing needed. NIPT low risk, carrier testing neg. . ntd screening declined. PLAN: Plan JOSE called, plan for emergency section for breech presentation, placental abruption.
--- NOTE | 2023-05-29 23:24 | RAD_ITS ---
EXAM: XR ABDOMEN, 1 VIEW CLINICAL INDICATION: no count before surgery TECHNIQUE: Frontal supine view of the abdomen/pelvis. COMPARISON: No relevant prior studies available. FINDINGS: LOWER THORAX: No acute pathology. GASTROINTESTINAL TRACT: Unremarkable. Non-obstructive. No bowel or stomach distention. ORGANS: Unremarkable as visualized. No organomegaly. No abnormal calcifications. BONES/JOINTS: No acute pathology. SOFT TISSUES: No acute pathology. OTHER FINDINGS: No retained surgical material identified. RAD/Abdomen Single View (Portable) IMPRESSION: No retained surgical material identified. Electronically Signed: Yogesh Madera MD at 1:13 EDT ,
--- NOTE | 2023-05-29 23:27 | EX.PCM.OBRPT ---
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 (5) Compromised kidney function: COMMENT: one functional kidney baseline BMP ordered with NOB labs. (6) Obesity (BMI 30.0-34.9): COMMENT: hbga1c with nob labs (7) Genital herpes: QUALIFIERS: Herpes simplex infection site: vulvovaginitis Qualified Code(s): A60.04 - Herpesviral vulvovaginitis COMMENT: acyclovir at 36 weeks. (8) Supervision of high-risk : QUALIFIERS: Trimester: second trimester Qualified Code(s): O09.92 - Supervision of high risk , unspecified, second trimester COMMENT: [id number], SOL 08/12/23 michael Hartmann (named after the [employer] they met at ) Joseph (9) : QUALIFIERS: Weeks of gestation: 28 weeks Qualified Code(s): Z3A.28 - 28 weeks gestation of COMMENT: nl anatomy -LUQ echogenic focus seen but states not clinically significant. no further testing needed. NIPT low risk, carrier testing neg. . ntd screening declined. Maternal Data Information SOL Calculator Estimated Delivery Date Method Current WG Current Estimate 08/19/23 Ultrasound #1 28w 2d Other Estimates 08/12/23 LMP (Certain) 29w 2d Final SOL: 08/19/23 Final SOL Source: US <20 weeks Doctor Who Attended Delivery: Cuca Hlom Details Operative Information Date of Procedure: 05/29/23 Pre-Operative Diagnosis: 28 y/o @ 28 weeks 2 days, placental abruption, breech presentation Post-Operative Diagnosis: 28 y/o @ 28 weeks 2 days, placental abruption, breech presentation Classification: Stat Procedure Type: low transverse supervising bailiff #1: Hayden Carrasco Type of Anesthesia: General Anesthesiologist: Andrzej Romo Antibiotic Given: Ancef 2 grams IV x1 and Zithromax 500 mg/5 mL X1 Estimated Blood Loss: 1000cc Procedure Start Time: 22:45 Procedure Stop Time: 23:18 Time of Delivery: 22:46 Findings Description of Procedure: The patient was brought to the OR emergently after her water broke and a large gush of blood and limbs were noted in the vagina. The heart tones were noted initially in the 60's, increased to 120's then back down to 80's. A baseline was not able to be determined. An JOSE was called, IV was placed, Weller catheter was placed, and Dr. Romo started the general anesthetic. Patient was prepped with a betadine splash. Pfannenstiel skin incision was made with the scalpel and carried through to the underlying layer of fascia with the scalpel. Fascia was nicked in the midline and the incision extended laterally. The rectus bellies were manually. The peritoneum was entered digitally. The incision was stretched and a transverse uterine incision was made with the scalpel. The 's buttocks was delivered atraumatically followed by the head and shoulders without complication. The cord was clamped and cut and the was handed off to awaiting nurse. The placenta was delivered spontaneously immediately following and was noted to be spliced at the edge extending inward about 1/[address] indicating either an abruption site or detachment site. It was noted to have a three-vessel cord. The uterus was exteriorized cleared of all clots and debris, and the incision was closed in a double layer closure using #1 Vicryl and a #1 Monocryl. The ovaries and fallopian tubes were noted to be within normal limits. The uterus was returned to the maternal abdomen and gutters were cleared of all clots and debris. The peritoneum was closed with 3-0 Monocryl in a running fashion. Fascia was closed with 0 PDS in a running fashion. Subcutaneous tissue was copiously irrigated and the skin was closed with 3-0 Monocryl in a subcuticular fashion. Mepilex dressing was applied without complication. Patient was taken to recovery in stable condition. It was discussed with the patient that based on the clinical information obtained during this encounter, combined with her history, at this time I would recommend repeat section for future deliveries as a lower uterine segment was not fully formed and the incision was higher up than a usual low transverse incision, if further pregnancies are desired. Presentation: Positive for Footling Breech Amniotic Membrane Rupture Type: Spontaneous Amniotic Fluid Description: Bloody Placental Delivery Description: Manual Removal Placenta Disposition: Sent with transport team Percentage of Placenta Abruption: 20 Cord Vessel Description: 3 Vessels Cord Entanglement: None Cord Gases: ABG and VBG A Gender: Male Delayed Cord Clamping: No Complications Risks of Surgery Discussed w/Patient: Bleeding, Anesthesia Risks, Infection, Need for Future C-Sections and Injury to surrounding structure(s) including bowel and bladder Multi Select Codes Urinary/Genital Urinary/Genital CPT Codes: 75302 Delivery global pkg
[2023-05-29 23:31] LABS: Differential Comment SCANNED
[2023-05-29 23:39] LABS: Fibrinogen 513 mg/dl (203-444)
[2023-05-29 23:40] VITALS: BP 114/80; BP 121/68; PULSE 90; RESP 12; TEMP 36.6; O2SAT 95
[2023-05-29 23:40] LABS: Syphilis Antibodies Non-reactive
--- NOTE | 2023-05-29 23:44 | DCINST_ITS ---
Discharge Instructions Diet Discharge Diet: No restrictions Activity Discharge Activity: May Not Drive (for 2 weeks or while taking narcotic pain medications.), May Shower and May Take a Tub Bath (in 7 days.) May resume sexual activity in: 4-6 weeks Weight Bearing Status: Full weight bearing Lifting Restrictions: 20 pounds Dressing / Incision Call your doctor if your incision/area has: Continuous Slow Oozing, Sudden Increased Bleeding, Increased Pain/ Swelling, Increased Redness and Foul Smelling Discharge Call your doctor if you observe: Fever of 101 or Higher and Using more than 1 pad per hour Suture Line Care: Avoid Pulling/Pushing and Avoid Pinching/Bending Cleanse incision/area with: Soap & Water and Keep Dressing Clean & Dry Follow Up Care Please Follow Up With: Yari Sidhu DO When: Call [phone] to make an appointment for an incision check in 1-2 weeks. Test Results: Test results from this visit will be discussed in further detail at your follow- up appointment, if applicable. Discharge Plan Admission Admit Date/Time: 05/29/23 22:30 Primary Reason for Your Visit: section Attending Provider: Yari Sidhu Primary Care Provider: Gail Alvarez Primary Discharge Orders/Prescriptions Prescriptions: New ibuprofen 800 mg tablet 800 mg PO Q8H PRN (Reason: pain) Qty: 30 0RF oxycodone-acetaminophen [Percocet] 5-325 mg tablet 1 tab PO Q4H PRN (Reason: pain) 7 Days Qty: 15 0RF Rx Instructions: 1-2 tabs q 4 hrs as needed for pain Continued PNV-[place] 28-1-300 mg capsule PO ondansetron 4 mg tablet,disintegrating 4 mg PO Q8H PRN (Reason: nausea and vomiting) Qty: 30 3RF famotidine [Pepcid] 20 mg tablet 20 mg PO BID Qty: 60 10RF Referrals / Follow Up: Care Physician,Gail Primary [Primary Care Provider] - Disposition Disposition (needs filled in before D/C Order can be placed): Home, Self Care
[2023-05-29 23:53] VITALS: O2SAT 95
[2023-05-30] VITALS (21 sets, daily range): BP systolic 93–120; BP diastolic 52–84; PULSE 83–102; RESP 14–21; TEMP 36.5–37; O2SAT 94–99; BMI 31.8
[2023-05-30] MEDS: Acetaminophen 500 MG Tablet 1000 MG PO ×4 (00:29→18:58)
[2023-05-30] MEDS: Ketorolac 30 MG/ML Syringe IV ×4 (00:30→18:54)
[2023-05-30 00:32] LABS: Hematocrit 33.6 % (37-47); Hemoglobin 11.1 g/dL (12.0-15.0); Mean Corpuscular Hgb 30.8 pg (27.0-32.0); Mean Corpuscular Volume 93.3 fL (81-99); Mean Platelet Vol. 10.6 fl (6.2-12.0); POSITIVE COUNT YES; Platelet Count 238 K/mm3 (150-450); RBC Distribution Width CV 13.1 % (11.6-14.6); RBC Distribution Width SD 44.6 fl (35.1-43.9)
[2023-05-30] MEDS: Oxytocin 15 Units/NS 250ml 15 UNITS/250 ML IV.SOLN 83 UNITS IV (00:35)
[2023-05-30 00:39] LABS: Scan Indicated on CBC? Y/N YES- FLAGS NOTED
[2023-05-30] MEDS: Azithromycin 500 MG in Dextrose 5%-Water (250mL Bag) 250 ML 250 MG IV (00:48)
[2023-05-30] MEDS: Lactated Ringers 1,000 ML 100 ML IV (01:05)
[2023-05-30] MEDS: HYDROmorphone 1 MG/ML Syringe IV ×3 (01:06→09:35)
[2023-05-30] MEDS: proCHLORPERazine 10 MG/2 ML Vial IV (01:06)
[2023-05-30 01:33] LABS: Differential Comment SCANNED
--- NOTE | 2023-05-30 02:15 | SUR.OPER ---
section count sheet not completed per Dr. Spaulding, x-ray to confirm no retained surgical material, needles and tapes counted and correct during surgery x1
[2023-05-30 06:15] LABS: Absolute Lymphocyte Count 1.19 X10^3/uL (0.83-4.51); Absolute Neutrophil Count 16.9 X10^3/uL (2.0-7.7); Basophil% 0.5 % (0-1); Eosinophil# 0.63 X10^3/uL; Hematocrit 27.4 % (37-47); Hemoglobin 9.4 g/dL (12.0-15.0); Lymphocyte # 1.19 X10^3/ul (0.83-4.51); Lymphocyte % 5.7 % (19-41); Mean Corp Hgb Conc 34.3 g/dL (32-36); Mean Corpuscular Hgb 30.6 pg (27.0-32.0); Mean Corpuscular Volume 89.3 fL (81-99); Mean Platelet Vol. 10.4 fl (6.2-12.0); Monocyte# 1.91 X10^3/uL; Monocyte% 9.2 % (0-10); NRBC Flagged by Analyzer 0 % (0-5); Neutrophil % 80.9 % (47-70); POSITIVE DIFFERENTIAL YES; POSITIVE MORPHOLOGY YES; Platelet Count 205 K/mm3 (150-450); RBC Distribution Width CV 13.1 % (11.6-14.6); Red Blood Count 3.07 M/mm3 (4.2-5.4); White Blood Count 20.9 K/mm3 (4.4-11.0)
[2023-05-30 06:19] LABS: Differential Indicated SCAN CRITERIA MET
[2023-05-30 06:58] LABS: Differential Comment SCANNED
--- NOTE | 2023-05-30 08:00 | PN.OBGYN_ITS ---
Subjective Subjective Patient doing well - mildly drowsy but overall fine, swelling down in arm no issues. Tolerating PO. Ambulating and voiding without difficulty. pumping. Denies chest pain, shortness of breath, calf pain/swelling, fevers, chills, lightheadedness. Objective Data Objective Data Vital Signs: Vital Signs Temp Pulse Resp BP Pulse Ox O2 Del Method 97.7 F L 102 H 18 101/57 L 96 Room Air 05/30/23 07:41 05/30/23 07:41 05/30/23 07:41 05/30/23 07:41 05/30/23 07:41 05/30/23 07:41 Oxygen Delivery Method Room Air Weight: 163 lb Body Mass Index (BMI) 31.8 Intake & Output: Intake and Output for Last 24 Hours 05/28/23 05/29/23 05/30/23 23:59 23:59 23:59 Intake Total 1179.17 / 1179.17 505 / 505 Output Total 1200 / 1200 Balance 1179.17 / 1179.17 -695 / -695 Lab / Micro Data 05/30/23 06:05 Labs: Laboratory Results - last 24 hr 05/29/23 22:45: WBC 22.3 H, RBC 3.72 L, Hgb 11.4 L, Hct 33.9 L, MCV 91.1, MCH 30.6, MCHC 33.6, RDW Std Deviation 43.3, RDW Coeff of Gail 13.1, Plt Count 238, MPV 10.6, Immature Gran % (Auto) 1.100 H, Neut % (Auto) 74.6 H, Lymph % (Auto) 14.7 L, [place] % (Auto) 8.5, Eos % (Auto) 0.6, Baso % (Auto) 0.5, Absolute Neuts (auto) 16.7 H, Absolute Lymphs (auto) 3.29, Nucleated RBC % 0, Differential Comment SCANNED, Diff Path Review June, PT 13.9, INR 1.1, APTT 28.8, Fibrinogen 513 H, Syphilis Total Ab Non-reactive, Blood Type A POSITIVE, Antibody Screen NEGATIVE 05/29/23 23:59: WBC 35.0 H*, RBC 3.60 L, Hgb 11.1 L, Hct 33.6 L, MCV 93.3, MCH 30.8, MCHC 33.0, RDW Std Deviation 44.6 H, RDW Coeff of Gail 13.1, Plt Count 238, MPV 10.6, Differential Comment SCANNED, Diff Path Review June foll 05/30/23 06:05: WBC 20.9 H, RBC 3.07 L, Hgb 9.4 L, Hct 27.4 L, MCV 89.3, MCH 30.6, MCHC 34.3, RDW Std Deviation 43.0, RDW Coeff of Gail 13.1, Plt Count 205, MPV 10.4, Immature Gran % (Auto) 0.700, Neut % (Auto) 80.9 H, Lymph % (Auto) 5.7 L, [place] % (Auto) 9.2, Eos % (Auto) 3.0, Baso % (Auto) 0.5, Absolute Neuts (auto) 16.9 H, Absolute Lymphs (auto) 1.19, Nucleated RBC % 0, Differential Comment SCANNED, Diff Path Review June Radiography Diagnostic Testing: Radiology Impression KUB X-Ray 05/29/23 23:24 IMPRESSION: No retained surgical material identified. Electronically Signed: Yogesh Madera MD at 1:13 EDT , ROS Constitutional Constitutional: Reports systems reviewed and no addt'l complaints, except as documented Cardiovascular Cardiovascular: Reports systems reviewed and no addt'l complaints, except as documented Respiratory/Chest Respiratory/Chest: Reports systems reviewed and no addt'l complaints, except as documented Gastrointestinal Gastrointestinal: Reports systems reviewed and no addt'l complaints, except as documented Physical Exam Const alert, oriented x3 and no apparent distress HEENT Head and Scalp: atraumatic Resp normal respiratory effort GI soft to palpation and non-tender Inspection: incision intact, healing well and drainage (none) Bimanual Exam - Vag & Uterus: uterus non-tender Uterus Palpation: uterus fundus firm (below Umbilicus) Assessment & Plan (1) Status post section: PLAN: Plan s/p LTCS PPD # 1 1. routine post care 2. breast feeding- support given 3. rh positive 4. rubella immune abruption
[2023-05-30 08:03] LABS: Bedside Glucose 114 mg/dL (74-106)
[2023-05-30] MEDS: Senna/Docusate Sodium 1 Tablet PO (09:34)
[2023-05-30] MEDS: 0.9% Saline Lock 10 ML Syringe IV ×2 (13:03→18:52)
[2023-05-30] MEDS: oxyCODONE 5 MG Tablet PO ×2 (15:53→21:34)
[2023-05-31] MEDS: Ibuprofen 600 MG Tablet PO ×2 (00:28→06:33)
[2023-05-31] MEDS: Acetaminophen 500 MG Tablet 1000 MG PO ×2 (00:29→06:33)
[2023-05-31 00:33] VITALS: BP 113/75; PULSE 83; RESP 16; O2SAT 97
[2023-05-31] MEDS: oxyCODONE 5 MG Tablet PO ×2 (01:34→07:34)
--- NOTE | 2023-05-31 07:53 | PCM.PN.OB ---
Subjective Subjective Patient doing well without complaints. Tolerating PO. Ambulating and voiding without difficulty. Denies chest pain, shortness of breath, calf pain/swelling, fevers, chills, lightheadedness. Objective Data Objective Data Vital Signs: Vital Signs Temp Pulse Resp BP Pulse Ox O2 Del Method 98.4 F 83 16 113/75 97 Room Air 05/30/23 19:22 05/31/23 00:33 05/31/23 00:33 05/31/23 00:33 05/31/23 00:33 05/31/23 00:33 Oxygen Delivery Method Room Air Weight: 163 lb Body Mass Index (BMI) 31.8 Intake & Output: Intake and Output for Last 24 Hours 05/29/23 05/30/23 05/31/23 23:59 23:59 23:59 Intake Total 1179.17 / 1179.17 1505 / 1505 Output Total 2900 / 2900 Balance 1179.17 / 1179.17 -1395 / -1395 Lab / Micro Data 05/30/23 06:05 Labs: Laboratory Results - last 24 hr 05/30/23 06:04: POC Glucose 114 H Micro: Microbiology 05/30/23 14:40 Interface Orders Chlamydia trachomatis (PCR) - Final 05/30/23 14:40 Interface Orders Neisseria gonorrhoeae (PCR) - Final ROS Constitutional Constitutional: Reports systems reviewed and no addt'l complaints, except as documented Cardiovascular Cardiovascular: Reports systems reviewed and no addt'l complaints, except as documented Respiratory/Chest Respiratory/Chest: Reports systems reviewed and no addt'l complaints, except as documented Gastrointestinal Gastrointestinal: Reports systems reviewed and no addt'l complaints, except as documented Physical Exam Const alert, oriented x3 and no apparent distress HEENT Head and Scalp: atraumatic Resp normal respiratory effort GI soft to palpation and non-tender Inspection: incision intact, healing well and drainage (none) Bimanual Exam - Vag & Uterus: uterus non-tender Uterus Palpation: uterus fundus firm (below Umbilicus) Assessment & Plan (1) Status post section: PLAN: Plan s/p LTCS PPD # 2 1. routine post care 2. breast feeding- support given 3. rh positive 4. rubella immune abruption
[2023-05-31 09:45] LABS: Pathologist Review Reviewed
[2023-05-31 09:46] LABS: Pathologist Review Reviewed
[2023-05-31 09:47] LABS: Pathologist Review Reviewed
[2023-05-31 09:49] VITALS: BP 113/83; PULSE 92; RESP 16; TEMP 36.7
[2023-05-31] MEDS: Senna/Docusate Sodium 1 Tablet PO (09:56)
--- NOTE | 2023-06-04 13:25 | NURSING ---
06/04/23 1325: Follow up phone call performed. Pt. reports she has been feeling sore, but doing really well overall. Still pumping for in NICU. Denies s+s of complications.
== END 2023-05-31 10:05 | disposition home or self-care (01) | DRG 788 ==
LOC: WPOUT 22:30 → WP 22:32 → WPOUT 22:40 → WP 22:40
PROVIDERS: Admitting Provider Obstetrics & Gynecology; Visit Provider Obstetrics & Gynecology
DX: O45.93 Premature separation of placenta, unspecified, third trimester (principal); O99.214 Obesity complicating childbirth; O32.8XX0 Maternal care for other malpresentation of fetus, not applicable or unspecified; Z37.0 Single live birth; O34.03 Maternal care for unspecified congenital malformation of uterus, third trimester; Q51.3 Bicornate uterus; Z3A.28 28 weeks gestation of pregnancy
CPT/HCPCS: 59050; 74018; 82962; 85025; 85027; 85384; 85610; 85730; 86780; 86850; 86900; 86901; 87491; 87591; 99221; J7120; A4216; G0378; J2405

== ENCOUNTER → 2023-07-09 | Outpatient (CLI) | payer OTHER, SELFPAY ==
[2023-07-12 15:08] LABS: Anti-Cardiolipin Ab, IgG, Qn < 9 GPL U/mL (0-14); Anti-Cardiolipin Ab, IgM, Qn 13 MPL U/mL (0-12); Beta-2-Glycoprotein I IgA <9 (0-25); Beta-2-Glycoprotein I IgG <9 (0-20); Beta-2-Glycoprotein I IgM 10 (0-32); Dilute Russell Viper Venom 45.3 sec (0.0-47.0); Hexagonal Phase Phospholipid 2 3 sec (0-11); Interpretation Comment: (.); PTT-LA 51.9 sec (0.0-43.5); PTT-LA Mix 48.6 sec (0.0-40.5); Thrombin Time 18.6 sec (0.0-23.0); dPT Confirm Ratio 1.04 Ratio (0.00-1.34)
== END | disposition home or self-care (01) ==
LOC: LAB 16:16
PROVIDERS: Referring Provider Obstetrics & Gynecology; Visit Provider Obstetrics & Gynecology
DX: O45.90 Premature separation of placenta, unspecified, unspecified trimester (principal); Z3A.00 Weeks of gestation of pregnancy not specified
CPT/HCPCS: 36415; 86146; 86147

== ENCOUNTER → 2023-10-09 | Outpatient (CLI) | payer OTHER, SELFPAY ==
[2023-10-11 08:12] LABS: Anti-Cardiolipin Ab, IgG, Qn < 9 GPL U/mL (0-14); Anti-Cardiolipin Ab, IgM, Qn 17 MPL U/mL (0-12); Beta-2-Glycoprotein I IgA <9 (0-25); Beta-2-Glycoprotein I IgG <9 (0-20); Beta-2-Glycoprotein I IgM <9 (0-32); Dilute Prothrombin Time (dPT) 43.5 sec (0.0-47.6); Dilute Russell Viper Venom 45.2 sec (0.0-47.0); Hexagonal Phase Phospholipid 2 6 sec (0-11); Interpretation Comment: (.); PTT-LA 83.1 sec (0.0-43.5); PTT-LA Mix 57.2 sec (0.0-40.5); Thrombin Time 18.6 sec (0.0-23.0); dPT Confirm Ratio 0.84 Ratio (0.00-1.34)
== END | disposition home or self-care (01) ==
LOC: LAB 11:50
PROVIDERS: Referring Provider Obstetrics & Gynecology; Visit Provider Obstetrics & Gynecology
DX: O45.90 Premature separation of placenta, unspecified, unspecified trimester (principal); N96 Recurrent pregnancy loss; Z3A.00 Weeks of gestation of pregnancy not specified; O99.891 Other specified diseases and conditions complicating pregnancy
CPT/HCPCS: 36415; 86146; 86147

== ENCOUNTER → 2024-07-08 | Outpatient (CLI) | payer OTHER, SELFPAY ==
--- NOTE | 2024-07-08 11:52 | RAD_ITS ---
PROCEDURE: SALPINGOGRAM 07/08/2024 REASON FOR EXAM: CHECK SHAPE OF UTERUS TECHNIQUE: Hysterosalpingogram was performed in conjunction which with the LABEL DESIGNER physician. COMPARISON: None. RAD/Salpingogram IMPRESSION: Visualized portions of the uterus show normal contour. Normal appearance of bilateral fallopian tubes is seen. Prompt and symmetric free spillage of contrast from both fallopian tubes was se en. Normal examination. Reading Location: [place] [id number]
--- NOTE | 2024-07-08 13:03 | PRO.PCM_ITS ---
Problems Associated Problem List Diagnoses (1) Bicornuate uterus: (2) Placental abruption: Multi Select Codes Urinary/Genital Urinary/Genital CPT Codes: 38645 HSG/SIS Non-invasive Procedural Procedure Information Date of Procedure: 07/08/24 Pre-Procedure Diagnosis: history of 28 week placental abruption Post-Procedure Diagnosis: history of 28 week placental abruption Procedure Performed:: hysterosalpingogram. cooling pan tender: No Description of procedure: Preop diagnosis: Infertility Postop diagnosis:Infertility , bilateral tubal patency Procedure: Hysterosalpingogram Surgeon:Yari Sidhu DO Implantable devices: None Complications: None Findings: Bilateral tubal patency and arcuate shape uterus, normal uterine cavity Operative details: Patient was taken to the x-ray room and was placed on the x- ray table and was in the dorsal lithotomy position. Speculum was placed in the vagina and the cervix prepped with Betadine and the HSG catheter was easily introduced into the uterus and speculum removed. Radiologist was brought in and while pushing radiopaque dye into the uterus via the HSG catheter the radiologist took multiple images and views and confirmed bilateral tubal patency seen. No gross uterine filling defects or abnormalities were seen. All instruments removed from the vagina and the uterus without complication. Patient tolerated the procedure well. Procedure findings: appeared more acruate shape on HSG- explained to patient after the procedure that arcuate uterus not likely to be associated with fertility or obstetrical complications. Complications Complications: No
== END | disposition home or self-care (01) ==
LOC: RAD 11:49
PROVIDERS: Referring Provider Obstetrics & Gynecology; Visit Provider Obstetrics & Gynecology
DX: Q51.3 Bicornate uterus (principal)
CPT/HCPCS: 58340; 74740